=== PATIENT | male | born 1955 | race Caucasian/White ===

== ENCOUNTER 2016-10-13 14:07 | Outpatient (RCR) | payer MEDICARE ==
--- OUTSIDE RECORDS SUMMARY | 2016-09-29 13:17 | XMS REPORT | Continuity of Care Document ---
Author Author [facility] Organization [facility] Address Unknown Phone Unavailable Care Team Providers Care Pecan Gatherer Name Role Phone Alex Buckley PCP [phone] Source Comments Some departments are not documenting in the electronic medical record. If you do not see the information that you expected, contact Release of Information in the Health Information Management department at [phone] for further assistance in locating additional records.[facility] Active Allergies and Adverse Reactions Allergen Noted Date Severity Reactions Comments Horse Serum 12/10/2013 EDEMA Tetanus Toxoid 12/12/2013 EDEMA 1971 (contained horse serum) Current Medications Prescription Sig. Disp. Refills Start End Date Status Date atenolol (TENORMIN) 50 mg Take 50 mg by mouth Active tablet daily. gabapentin (NEURONTIN) Take 300 mg by mouth Active 300 mg capsule three times daily. methylphenidate ER Take 10 mg by mouth three Active (RITALIN SR; METADATE ER; times daily Take 2 METHYLIN ER) 20 mg tablet tablets tid oxyCODONE (OXY-IR) 30 mg Take 30 mg by mouth every Active tablet 4 hours as needed methadone (DOLOPHINE; Take 10 mg by mouth three Active METHADOSE) 10 mg tablet times daily omeprazole DR(+) Take 20 mg by mouth Active (PRILOSEC) 20 mg capsule daily. ledipasvir-sofosbuvir(+) Take 1 Tab by mouth Active (HARVONI) 90-400 mg daily. tablet furosemide (LASIX) 40 mg Take 40 mg by mouth as Active tablet Needed. INSULIN ASPART PROTAM & Inject into area(s) as Active ASPART (NOVOLOG MIX 70-30 directed. FLEXPEN SC) ibuprofen (MOTRIN) 200 mg Take 200 mg by mouth Active tablet every 6 hours as needed for Pain. 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 Hepatitis C 12/12/2013 Chronic liver disease 12/10/2013 Diabetes mellitus (HCC) 12/10/2013 Anxiety 12/10/2013 Tobacco abuse 12/10/2013 Immunizations Name Dates Previously Given Next Due Flu Vaccine Trivalent=>3 12/12/2013 Yo (Preservative Free) Pneumococcal Vaccine 06/24/2014 (23-Shireen Adult) Pneumococcal 12/12/2013 Vaccine(13-Shireen Peds/immunocompromised adult) Tdap Vaccine 12/12/2013 Social History Tobacco Use Types Packs/Day Years Used Date Former Smoker Cigarettes 2 40 Quit: 06/09/2014 Smokeless Tobacco: Never Used Comments: reduced severely 1-2-14, occassional puff Alcohol Use Drinks/Week oz/Week Comments No quit 1998 Last Filed Vital Signs Vital Sign Reading Time Taken Blood Pressure 162/85 04/29/2016 12:50 PM CDT Pulse 73 04/29/2016 12:50 PM CDT Temperature 36.9 C (98.5 F) 11/13/2014 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 Respiratory Rate 16 11/13/2014 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 Height 1.88 m (6' 2") 04/29/2016 12:50 PM CDT Weight 96.707 kg (213 lb 3.2 oz) 04/29/2016 12:50 PM CDT Body Mass Index 27.36 04/29/2016 12:50 PM CDT Oxygen Saturation 99% 06/25/2014 8:52 AM CDT Plan of Care Date Type Specialty Providers Description 10/28/2016 Appointment Otolaryngology Geetha Nunn MD [address] [facility] [address] [place] [address] [phone] (Fax) Health Maintenance Due Date Last Done Comments Physical (Comprehensive) 1962 Exam Colorectal Cancer 2005 Screening Shingles Vaccine 2015 Influenza Vaccine 07/10/2016 12/12/2013 Tetanus Vaccine 12/12/2023 12/12/2013 Hepatitis C Screening Completed 12/12/2013, 12/12/2013, 12/12/2013 Pertussis Vaccine Completed 12/12/2013 Results from Last 3 Months Not on file
[2016-09-29 13:34] LABS: BASOPHILS % (AUTO) 0 % (0-10); EOSINOPHILS # (AUTO) 0.3 10^3/uL (0.0-0.3); EOSINOPHILS % (AUTO) 7 % (0-10); LYMPHOCYTES # (AUTO) 1.8 X 10^3 (1.0-4.0); LYMPHOCYTES % (AUTO) 36 % (12-44); MEAN CORPUSCULAR HEMOGLOBIN 30 PG (25-34); MEAN CORPUSCULAR HGB CONC 34 G/DL (32-36); MEAN CORPUSCULAR VOLUME 87 FL (80-99); MEAN PLATELET VOLUME 9.9 FL (7.4-10.4); MONOCYTES # (AUTO) 0.4 X 10^3 (0.0-1.0); MONOCYTES % (AUTO) 8 % (0-12); NEUTROPHILS # (AUTO) 2.5 X 10^3 (1.8-7.8); NEUTROPHILS % (AUTO) 49 % (42-75); PLATELET COUNT 166 10^3/uL (130-400); RED BLOOD COUNT 4.32 10^6/uL (4.35-5.85); RED CELL DISTRIBUTION WIDTH 13.6 % (10.0-14.5)
[2016-09-29 14:39] LABS: ALANINE AMINOTRANSFERASE 9 U/L (0-55); ANION GAP 8 MMOL/L (5-14); ASPARTATE AMINO TRANSFERASE 20 U/L (5-34); BILIRUBIN,TOTAL 0.3 MG/DL (0.1-1.0); BLOOD UREA NITROGEN 17 MG/DL (7-18); BUN/CREATININE RATIO 20; CALCIUM 9.3 MG/DL (8.5-10.1); CARBON DIOXIDE 27 MMOL/L (21-32); CHLORIDE 105 MMOL/L (98-107); CREATININE SERUM 0.84 MG/DL (0.60-1.30); GFR ESTIMATED > 60; GLUCOSE 170 MG/DL (70-105); POTASSIUM 3.7 MMOL/L (3.6-5.0); SODIUM 140 MMOL/L (135-145); TOTAL PROTEIN 7.7 G/DL (6.4-8.2)
[~2016-10-13 14:07] MED LIST: ATEN50TA PO; CLIN-81 PO; CLIN150C2 PO; DESM0.1T PO; FLUC200T PO; FLUC200T45 PO; HUM100VI15 SC; INSUSS SC; METH10TA2 PO; METH20TA PO; METO25TA PO; MORP20SO PO; OXYC20TA14 PO; OXYC20TA4 PO; OXYC30TA80 PO; SUMA100T3 PO
[2016-10-13 14:41] LABS: BASOPHILS % (AUTO) 1 % (0-10); EOSINOPHILS # (AUTO) 0.3 10^3/uL (0.0-0.3); EOSINOPHILS % (AUTO) 5 % (0-10); LYMPHOCYTES % (AUTO) 37 % (12-44); MEAN CORPUSCULAR HEMOGLOBIN 30 PG (25-34); MEAN CORPUSCULAR HGB CONC 34 G/DL (32-36); MEAN CORPUSCULAR VOLUME 88 FL (80-99); MEAN PLATELET VOLUME 9.4 FL (7.4-10.4); MONOCYTES # (AUTO) 0.4 X 10^3 (0.0-1.0); MONOCYTES % (AUTO) 7 % (0-12); NEUTROPHILS # (AUTO) 2.7 X 10^3 (1.8-7.8); NEUTROPHILS % (AUTO) 51 % (42-75); PLATELET COUNT 134 10^3/uL (130-400); RED BLOOD COUNT 4.01 10^6/uL (4.35-5.85); RED CELL DISTRIBUTION WIDTH 13.6 % (10.0-14.5); WHITE BLOOD COUNT 5.4 10^3/uL (4.3-11.0)
[2016-10-13 15:13] LABS: ALANINE AMINOTRANSFERASE 6 U/L (0-55); ALBUMIN 3.7 G/DL (3.2-4.5); ANION GAP 8 MMOL/L (5-14); ASPARTATE AMINO TRANSFERASE 17 U/L (5-34); BILIRUBIN,TOTAL 0.3 MG/DL (0.1-1.0); BLOOD UREA NITROGEN 11 MG/DL (7-18); BUN/CREATININE RATIO 14; CALCIUM 8.6 MG/DL (8.5-10.1); CARBON DIOXIDE 28 MMOL/L (21-32); CHLORIDE 107 MMOL/L (98-107); GFR ESTIMATED > 60; GLUCOSE 112 MG/DL (70-105); POTASSIUM 4.2 MMOL/L (3.6-5.0); SODIUM 143 MMOL/L (135-145); TOTAL PROTEIN 7.1 G/DL (6.4-8.2)
[2016-10-13 15:49] LABS: ERYTHROCYTE SEDIMENTATION RATE 35 MM/HR (0-30)
== END 2016-12-28 | disposition home or self-care (01) ==
LOC: ONC 14:07
PROVIDERS: ATTEND Internal Medicine Hematology & Oncology
DX: C09.8 Malignant neoplasm of overlapping sites of tonsil (principal); C77.0 Secondary and unspecified malignant neoplasm of lymph nodes of head, face and neck; D69.59 Other secondary thrombocytopenia; B18.2 Chronic viral hepatitis C; K74.60 Unspecified cirrhosis of liver; I10 Essential (primary) hypertension; J44.9 Chronic obstructive pulmonary disease, unspecified; F17.210 Nicotine dependence, cigarettes, uncomplicated; Z79.899 Other long term (current) drug therapy; Z92.3 Personal history of irradiation; B19.20 Unspecified viral hepatitis C without hepatic coma
CPT/HCPCS: 36415; 80053; 82105; 85025; 85652; 99213

== ENCOUNTER → 2017-03-31 | Outpatient (CLI) | payer MEDICARE ==
--- NOTE | 2017-03-31 11:24 | Diagnostic Imaging Report ---
EXAMINATION: Ultrasound of the liver. INDICATION: Liver cirrhosis. FINDINGS: The pancreas is largely obscured by bowel gas. The liver is hyperechoic and has a nodular contour, compatible with cirrhosis. There is no focal mass identified. The CBD is 5 mm in caliber. There is hepatopetal flow in the portal vein. The gallbladder has been removed. The right kidney is not well seen due to overlying shadowing from bowel loops with no definite hydronephrosis or focal lesion. No fluid collection or free fluid in the upper right abdomen is seen. IMPRESSION: Nodular contour of the liver, suggestive of cirrhosis. No focal mass. Dictated by: Dictated on workstation # [id number]
== END ==
LOC: RAD 08:07
PROVIDERS: ATTEND Internal Medicine Gastroenterology
DX: K74.60 Unspecified cirrhosis of liver (principal)
CPT/HCPCS: 76705

== ENCOUNTER → 2017-06-04 | Outpatient (CLI) | payer MEDICARE ==
[2017-06-04 15:11] LABS: BASOPHILS % (AUTO) 0 % (0-10); EOSINOPHILS # (AUTO) 0.5 10^3/uL (0.0-0.3); EOSINOPHILS % (AUTO) 7 % (0-10); LYMPHOCYTES # (AUTO) 2.2 X 10^3 (1.0-4.0); LYMPHOCYTES % (AUTO) 31 % (12-44); MEAN CORPUSCULAR HEMOGLOBIN 31 PG (25-34); MEAN CORPUSCULAR HGB CONC 35 G/DL (32-36); MEAN CORPUSCULAR VOLUME 89 FL (80-99); MEAN PLATELET VOLUME 10.1 FL (7.4-10.4); MONOCYTES # (AUTO) 0.5 X 10^3 (0.0-1.0); MONOCYTES % (AUTO) 8 % (0-12); NEUTROPHILS # (AUTO) 3.9 X 10^3 (1.8-7.8); NEUTROPHILS % (AUTO) 54 % (42-75); PLATELET COUNT 166 10^3/uL (130-400); RED BLOOD COUNT 4.34 10^6/uL (4.35-5.85); RED CELL DISTRIBUTION WIDTH 13.4 % (10.0-14.5); WHITE BLOOD COUNT 7.1 10^3/uL (4.3-11.0)
[2017-06-04 15:48] LABS: ALANINE AMINOTRANSFERASE 26 U/L (0-55); ALBUMIN 4.3 GM/DL (3.2-4.5); ANION GAP 11 MMOL/L (5-14); ASPARTATE AMINO TRANSFERASE 26 U/L (5-34); BILIRUBIN,TOTAL 0.5 MG/DL (0.1-1.0); BLOOD UREA NITROGEN 19 MG/DL (7-18); BUN/CREATININE RATIO 22; CALCIUM 9.6 MG/DL (8.5-10.1); CARBON DIOXIDE 20 MMOL/L (21-32); CHLORIDE 109 MMOL/L (98-107); CREATININE SERUM 0.85 MG/DL (0.60-1.30); GFR ESTIMATED > 60; GLUCOSE 115 MG/DL (70-105); POTASSIUM 4.3 MMOL/L (3.6-5.0); SODIUM 140 MMOL/L (135-145); TOTAL PROTEIN 7.9 GM/DL (6.4-8.2)
== END ==
LOC: ONC 14:49
PROVIDERS: ATTEND Internal Medicine Hematology & Oncology
DX: C09.8 Malignant neoplasm of overlapping sites of tonsil (principal); C77.0 Secondary and unspecified malignant neoplasm of lymph nodes of head, face and neck; D69.59 Other secondary thrombocytopenia; B18.2 Chronic viral hepatitis C; K74.60 Unspecified cirrhosis of liver; I10 Essential (primary) hypertension; J44.9 Chronic obstructive pulmonary disease, unspecified; F17.210 Nicotine dependence, cigarettes, uncomplicated; Z79.899 Other long term (current) drug therapy; Z92.3 Personal history of irradiation
CPT/HCPCS: 36415; 80053; 85025; 99213

== ENCOUNTER → 2017-06-10 | Outpatient (CLI) | payer MEDICARE ==
[~2017-06-10] MED LIST changes: +CATHETER FLUSH 10 ML SYR IV PRN; +IOHEXOL 350 MG/ML 100 ML (OMNIPAQUE 350) VIAL IV ONE; +NS 100 ML (IVPB) BAG IV ONE
--- NOTE | 2017-06-10 13:59 | Diagnostic Imaging Report ---
PROCEDURE: CT neck soft tissue with contrast. TECHNIQUE: Multiple contiguous axial images were obtained through the neck after the administration of contrast. INDICATION: Small cell carcinoma of the neck, left-sided tenderness and swelling. FINDINGS: The previous CT neck exam performed on 10/07/2016 failed to show any sign of an acute abnormality of the neck. There was no mass lesion identified either. On this study, there is still no mass or adenopathy identified. The thyroid gland is homogeneous and not enlarged. The submandibular glands and the parotid glands seem similar to the prior study. The tracheal air shadow is not compressed or deviated. The bone windows show no evidence for fracture or for destructive lesion. The intracranial contents where visualized are unremarkable for an acute abnormality. The lung apices are clear. 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 IMPRESSION: 1. There is no mass or adenopathy involving the neck and there is no sign of an acute abnormality. When compared to the previous study, there has been no significant change. 2. If clinical concern regarding an underlying neoplastic process persists and further imaging is desired, then PET/CT would be recommended. Dictated by: Dictated on workstation # [id number]
== END ==
LOC: RAD 11:39
PROVIDERS: ATTEND Internal Medicine Hematology & Oncology
DX: C09.8 Malignant neoplasm of overlapping sites of tonsil (principal)
CPT/HCPCS: 70491

== ENCOUNTER → 2018-02-22 | Outpatient (CLI) | payer MEDICARE ==
[~2018-02-22] MED LIST changes: +BARIUM SUSPENSION 2.1% (VANILLA SILQ) 450 ML PO ONE
--- NOTE | 2018-02-22 16:50 | Diagnostic Imaging Report ---
INDICATION: History of tonsillar cancer and weight loss and fatigue and history of liver disease. TECHNIQUE: CT of the chest and abdomen obtained with IV contrast. COMPARISON: The study is compared to 10/07/2016. FINDINGS: There are no enlarged mediastinal or hilar nodes. There are no enlarged axillary nodes or chest wall lesions. There is no pleural or pericardial fluid. Plate and screws are visualized in the left clavicle. Lung parenchymal windows demonstrate emphysematous changes. There is no consolidation or pneumothorax or pleural fluid. Coronary artery calcifications are noted. There is an anatomic variant with an aberrant right subclavian artery taking off as the last branch of the arch and passing posterior to the esophagus. CT ABDOMEN FINDINGS: The liver shows no focal lesion. Gallbladder is surgically absent. Spleen has a few calcified granulomata. The adrenals and pancreas and kidneys are unremarkable except for a small cyst in the left kidney. There is no retroperitoneal mass or adenopathy. There is no ascites. Visualized bowel loops are unremarkable. There are few scattered aortic calcifications. IMPRESSION: 1. CT chest demonstrates diffuse emphysematous changes as well as an incidental coronary artery calcifications. There is no adenopathy in the chest. No pulmonary parenchymal mass lesions are present. 2. CT abdomen demonstrates no evidence of metastatic disease. Patient has had previous cholecystectomy. There is no focal liver lesion. There are degenerative changes in the lumbar spine. There are mild aortic calcifications. Dictated by: Dictated on workstation # [id number]
== END ==
LOC: RAD 13:20
PROVIDERS: ATTEND Internal Medicine Gastroenterology
DX: J43.9 Emphysema, unspecified (principal); I70.0 Atherosclerosis of aorta; M47.816 Spondylosis without myelopathy or radiculopathy, lumbar region; Z85.818 Personal history of malignant neoplasm of other sites of lip, oral cavity, and pharynx; Z87.19 Personal history of other diseases of the digestive system; Z90.49 Acquired absence of other specified parts of digestive tract
CPT/HCPCS: 71260; 74160

== ENCOUNTER 2018-06-07 20:58 | Emergency (ER) | payer MEDICARE ==
[~2018-06-07] VITALS: Ht 185.4 cm; Wt 77.2 kg
[~2018-06-07 20:58] MED LIST changes: -BARIUM SUSPENSION 2.1% (VANILLA SILQ) 450 ML PO ONE; -CATHETER FLUSH 10 ML SYR IV PRN; -IOHEXOL 350 MG/ML 100 ML (OMNIPAQUE 350) VIAL IV ONE; -NS 100 ML (IVPB) BAG IV ONE
[2018-06-07] MEDS ORDERED: HYDR-3820 (21:11)
[2018-06-07] MEDS ORDERED: TAMS0.4C2 (21:11)
[2018-06-07] MEDS ORDERED: FLUORESCEIN (FLUOR-I-STRIPS) 1 MG STRP ONE (21:14)
[2018-06-07] MEDS ORDERED: TETRACAINE 0.5% OPHTH SOLN 4 ML BTL (SINGLE DOSE ONLY) ONE (21:14)
[2018-06-07] MEDS ORDERED: BSS 15 ML ONE (21:14)
[2018-06-07] MEDS ORDERED: RX-CIPROFLOXACIN (CILOXAN) 0.3% OP SOLN 2.5 ML ONE (21:21)
--- NOTE | 2018-06-07 21:25 | ED EENT ---
History of Present Illness General Chief Complaint: Eye Problems Stated Complaint: R EYE PAIN Nursing Triage Note: right eye pain/blurred vision s/p left hand surgery today. Source: patient Exam Limitations: no limitations History of Present Illness Date Seen by Provider: Jun 07, 2018 Time Seen by Provider: 21:10 Initial Comments C/O RIGHT EYE PAIN, BURNING AND BLURRED VISION STATES HE HAD SURGERY THIS AFTERNOON ON HIS LEFT THUMB, AT [facility] WHEN HE WOKE UP FROM ANESTHESIA, HE HAD RIGHT EYE PAIN AND BLURRY VISION SYMPTOMS CONTINUE NO DRAINAGE FROM EYE PT NORMALLY WEARS GLASSES NO PRIOR EYE INJURY OR OTHER EYE PROBLEMS Allergies and Home Medications Allergies Coded Allergies: Tetanus Vaccines and Toxoid (Unverified Allergy, Unknown, 06/10/17) Home Medications Atenolol 50 Mg Tablet, 50 MG PO HS, (Reported) Methadone HCl 10 Mg Tablet, 20 MG PO TID, (Reported) Methylphenidate Hcl 20 Mg Tablet, 20 MG PO TID, (Reported) Oxycodone Hcl 30 Mg Tablet, 30 MG PO EVERY 3 HOURS, (Reported) Patient Home Medication List Home Medication List Reviewed: Yes Review of Systems Constitutional: no symptoms reported Eyes: See HPI Neurological: No Symptoms Reported Past Kaidann-Xbeuza-Yfqgez Hx Patient Social History Alcohol Use: Denies Use Recreational Drug Use: No Smoking Status: Former Smoker 2nd Hand Smoke Exposure: Yes Recent Foreign Travel: No Contact w/Someone Who Travel: No Recent Infectious Disease Expo: No Recent Hopitalizations: No Immunizations Up To Date Tetanus Booster (TDap): Unknown Date of Pneumonia Vaccine: Jun 21, 2014 Seasonal Allergies Seasonal Allergies: No Past Medical History Surgeries: Yes (HEAD AND NECK CANCER RESECTION; LEFT THUMB SURGERY 06/07/18-- [facility]) Gallbladder, Orthopedic Respiratory: No Cardiac: No Neurological: Yes (NEUROPATHY) Reproductive Disorders: No Sexually Transmitted Disease: No Genitourinary: No Gastrointestinal: Yes (HEPATITIS C) Hepatitis, Cirrhosis Musculoskeletal: Yes (CHRONIC GENERALIZED PAIN) Endocrine: Yes Diabetes, Insulin dep HEENT: Yes (HEAD AND NECK CANCER; DRY MOUTH FROM RADIATION ) Dysphagia, Tonsilitis Cancer: Yes (tonsil, throat, 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 ) What Type of Treatment Did You: Radiation, Surgical Intervention Psychosocial: Yes Anxiety Integumentary: No Blood Disorders: No Physical Exam Vital Signs Vital Signs - First Documented 06/07/18 21:11 Temp 97.5 Pulse 106 Resp 20 B/P (MAP) 155/85 (108) Pulse Ox 95 O2 Delivery Room Air Height, Weight, BMI Height: 6'1" Weight: 170lbs. 4.0oz. 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, no motor/sensory deficits, alert, normal mood/affect, oriented x 3 Skin: normal color, warm/dry CAST/SPLINT IN PLACE ON LEFT HAND AND WRIST Procedures/Interventions Eye : Location: right eye Anesthesia (gtts): Tetracaine Progress/Procedure Conclusion FLUORESCEIN STAIN--DYE UPTAKE/ABRASION ACROSS MID CORNEA, CURVED ABRASION Progress/Results/Core Measures Results/Orders My Orders Orders - HAL URIAS DO Fluorescein Strips (Inumy-W-Dkziyx) (06/07/18 21:14) Tetracaine 0.5% Ophth Yesica Sdv (Tetracai (06/07/18 21:14) Balanced Salt Irrigation Soln (Bss Irrig (06/07/18 21:14) Rx-Ciprofloxacin Ophth Soln (Rx-Ciloxan (06/07/18 21:21) Medications Given in ED Current Medications Medications Dose Ordered Sig/Santo Route Start Time Stop Time Status Last Admin Dose Admin Balanced Salt Solution 15 ml STK-MED ONCE .ROUTE 06/07/18 21:14 06/07/18 21:17 DC 06/07/18 21:18 15 ML Fluorescein Sodium 1 mg STK-MED ONCE .ROUTE 06/07/18 21:14 06/07/18 21:17 DC 06/07/18 21:19 1 MG Tetracaine HCl 4 ml STK-MED ONCE .ROUTE 06/07/18 21:14 06/07/18 21:17 DC 06/07/18 21:19 4 ML Vital Signs/I&O 06/07/18 06/07/18 21:11 21:36 Temp 97.5 97.5 Pulse 106 88 Resp 20 20 B/P (MAP) 155/85 (108) 138/78 (108) Pulse Ox 95 96 O2 Delivery Room Air Room Air Blood Pressure Mean: 108 Progress Progress Note : Progress Note OFFERED TETANUS VACCINATION AND PT DECLINES AT THIS TIME-STATES HE WILL GET ONE AT HIS APPOINTMENT THIS WEEK Departure Impression Primary Impression: Right corneal abrasion Disposition: 01 HOME, SELF-CARE Condition: Stable Departure-Patient Inst. Referrals: JAVIER ULLOA OD, RICKY D DO (PCP/Family) Primary Care Physician Patient Instructions: Corneal Abrasion (DC) Add. Discharge Instructions: DO NOT RUB EYE TAKE YOUR PAIN MEDICATION PRESCRIBED USE EYE DROPS 2 DROP EVERY [address] UP WITH DR. ULLOA TOMORROW FOR FURTHER CARE All discharge instructions reviewed with patient and/or family. Voiced understanding. Images Eye 1 - Abrasion, Dye uptake (fluorescein) HAL URIAS DO Jun 07, 2018 21:25
[2018-06-07 21:36] VITALS: BP 138/78
--- OUTSIDE RECORDS SUMMARY | 2018-06-07 22:36 | XMS REPORT | Clinical Summary ---
Author Author [facility] Organization [facility] Address Unknown Phone Unavailable Care Team Providers Care Media Strategist Name Role Phone Self, Referral Unavailable Unavailable Matthew Leiva MD 3 Linda Mccullough Unavailable Unavailable Geetha Nunn MD Unavailable Radha Yuan RN Unavailable Unavailable Alex Buckley DO PCP [place] CRNA Unavailable Unavailable Casimiro Limon PA-C Unavailable Source Comments Some departments are not documenting in the electronic medical record. If you do not see the information that you expected, contact Release of Information in the Health Information Management department at [phone] for further assistance in locating additional records.[facility] Allergies Active Allergy Reactions Severity Noted Date Comments Horse/Equine Containing EDEMA 12/10/2013 Products Tetanus Toxoid EDEMA 12/12/2013 1971 (contained horse serum) Current Medications Prescription [...] every Active tablet 4 hours as needed omeprazole DR(+) Take 20 mg by mouth Active (PRILOSEC) 20 mg capsule daily. furosemide (LASIX) 40 mg Take 40 mg by mouth as Active tablet Needed. INSULIN ASPART PROTAM & Inject into area(s) as Active ASPART (NOVOLOG MIX 70-30 directed. 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 Hepatitis C 12/12/2013 Chronic liver disease 12/10/2013 Diabetes mellitus (HCC) 12/10/2013 Anxiety 12/10/2013 Tobacco abuse 12/10/2013 Immunizations Name Dates Previously Given Next Due Flu Vaccine Trivalent=>3 12/12/2013 Yo (Preservative Free) Pneumococcal Vaccine 06/24/2014 (23-Shireen Adult) Pneumococcal 12/12/2013 Vaccine(13-Shireen Peds/immunocompromised adult) Tdap Vaccine 12/12/2013 Family History Medical History Relation Name Comments Anemia Father Coronary Artery Disease Father Heart Attack Father High Cholesterol Father Premature Heart Disease Father Coronary Artery Disease Maternal Uncle Premature Heart Disease Maternal Uncle Migraines Sister Relation Name Status Comments Father Maternal Uncle Mother Sister Social History Tobacco Use Types Packs/Day Years Used Date Former Smoker Cigarettes 2 40 Quit: 06/09/2014 Smokeless Tobacco: Never Used Comments: reduced severely 1-2-14, occassional puff Alcohol Use Drinks/Week oz/Week Comments No quit 1998 Sex Assigned at Date Recorded Not on file Last Filed Vital Signs Vital Sign Reading Time Taken Blood Pressure 135/77 06/22/2017 10:50 AM CDT Pulse 72 06/22/2017 10:50 AM CDT Temperature 36.9 C (98.5 F) 11/13/2014 10:34 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 Respiratory Rate 16 11/13/2014 10:34 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 Oxygen Saturation 99% 06/25/2014 8:52 AM CDT Inhaled Oxygen - - Concentration Weight 82.7 kg (182 lb 6.4 oz) 06/22/2017 10:50 AM CDT Height 188 cm (6' 2") 06/22/2017 10:50 AM CDT Body Mass Index 23.42 06/22/2017 10:50 AM CDT Plan of Treatment Health Maintenance Due Date Last Done Comments PHYSICAL (COMPREHENSIVE) 1962 EXAM COLORECTAL CANCER 2005 SCREENING SHINGLES RECOMBINANT 2005 VACCINE (1 of 2) INFLUENZA VACCINE 08/09/2018 12/12/2013 TETANUS VACCINE 12/12/2023 12/12/2013 HIV SCREENING Completed 12/12/2013 PERTUSSIS VACCINE Completed 12/12/2013 Results Not on filefrom Last 3 Months
== END 2018-06-07 21:35 | disposition home or self-care (01) ==
LOC: EDUNIT# 20:58 → ER 20:59
DX: S05.00XA Injury of conjunctiva and corneal abrasion without foreign body, unspecified eye, initial encounter (principal); E11.9 Type 2 diabetes mellitus without complications; B19.20 Unspecified viral hepatitis C without hepatic coma; F41.9 Anxiety disorder, unspecified; Z88.7 Allergy status to serum and vaccine; Z98.890 Other specified postprocedural states; Z87.891 Personal history of nicotine dependence; Z85.89 Personal history of malignant neoplasm of other organs and systems; Z87.19 Personal history of other diseases of the digestive system; X58.XXXA Exposure to other specified factors, initial encounter
CPT/HCPCS: 99283